=== PATIENT | female | born 1990 | race Two or more races ===

== ENCOUNTER 2024-07-19 06:23 | Inpatient (IN) | payer MEDICAID, SELFPAY ==
[2024-07-19] VITALS (59 sets, daily range): BP systolic 116–171; BP diastolic 64–95; PULSE 55–82; RESP 16–99; TEMP 36.7–37; O2SAT 95–100; BMI 39.6
[2024-07-19] MEDS: RINGERS LACTATED 1000 ML 1,000 ML 100 ML IV ×2 (07:00→08:05)
--- NOTE | 2024-07-19 07:33 | PD.LDHP ---
Documentation for date of: 07/19/24 OB Labor/Induct. HPI History of Present Illness Comments: H and P dictated on STAT line #9 in [place] [id number] Meds Home Medications and Allergies Allergies Allergy/AdvReac Type Severity Reaction Status Date / Time No Known Allergies Allergy Verified 07/18/22 10:55 OB Exam Physical Exam Vital signs: Temp Pulse Resp BP 98.4 F 67 17 132/64 H 07/19/24 06:40 07/19/24 07:29 07/19/24 06:40 07/19/24 07:29
[2024-07-19 08:35] LABS: Basophils # (Auto) 0.1 Thou/mm3 (0.0-0.2); Basophils % (Auto) 1 % (0-2.5); Eosinophils # (Auto) 0.2 Thou/mm3 (0.0-0.5); Eosinophils % (Auto) 2 % (0-10); Hematocrit 33.8 % (36.0-46.0); Hemoglobin 11.7 g/dL (12.0-16.0); Immature Granulocytes % (Auto) 1 % (0-0); Immature Granulocytes Auto 0.09 Thou/mm3 (0.00-0.00); Lymphocytes % (Auto) 37 % (10-50); Mean Corpuscular HGB Conc 34.6 g/dl (31.0-37.0); Mean Corpuscular Hemoglobin 30.1 pg (25.0-35.0); Mean Corpuscular Volume 87 fL (80-100); Monocytes # (Auto) 0.6 Thou/mm3 (0.0-0.8); Monocytes % (Auto) 8 % (0-12); Neutrophils # (Auto) 4.2 Thou/mm3 (1.8-7.7); Neutrophils % (Auto) 52 % (37-80); Nucleated Red Blood Cell % 0 /100 WBC (0); Platelet Count 203 Thou/mm3 (140-440); Red Blood Count 3.89 Miln/mm3 (4.00-5.20)
[2024-07-19 08:36] LABS: Collection Type, Urine Clean Catch
[2024-07-19 08:43] LABS: Amphetamine/Metham Scrn,Ur OB Negative (Negative); Benzoylecgonine Screen, Ur OB Negative (Negative); Opiate Screen,Urine OB Negative (Negative); THC Screen,Urine OB Negative (Negative)
[2024-07-19 09:00] LABS: Alanine Aminotransferase 12 U/L (10-49); Albumin, Serum 3.4 gm/dL (3.5-5.0); Albumin/Globulin Ratio 1.5 (1.2-2.2); Alkaline Phosphatase 156 U/L (46-116); Anion Gap 9 (7-16); Aspartate Amino Transferase 18 U/L (0-34); BUN/Creatinine Ratio 18 Ratio (12-20); Bilirubin,Total 0.4 mg/dL (0.3-1.2); Blood Urea Nitrogen 9 mg/dL (9-23); Calcium 8.7 mg/dL (8.3-10.6); Calcium (Corrected) 9.2 mg/dL (8.5-10.1); Carbon Dioxide 21.2 mMol/L (20.0-31.0); Chloride 109 mMol/L (98-107); Creatinine (Component) 0.5 mg/dL (0.6-1.3); Estimated Creatinine Clearance 172.1 mL/min (>60); Globulin 2.2 gm/dL (2.3-3.5); Glucose 83 mg/dL (74-106); Osmolality,Calculated 275 (275-295); Potassium 3.7 mMol/L (3.4-5.1); Sodium 139 mMol/L (136-145); Total Protein 5.6 gm/dL (5.7-8.2); Uric Acid 3.9 mg/dL (3.1-7.8); eGFR > 60 See Note
[2024-07-19 09:09] LABS: Fibrinogen 383 mg/dL (175-375); Partial Thromboplastin Time 29.9 Seconds (22.0-36.0); Prothrombin Time 10.5 Seconds (9.0-12.2)
[2024-07-19 09:19] LABS: Syphilis Nonreactive (Nonreactive)
[2024-07-19 09:19] LABS: Bilirubin,Urine Negative (Negative); Blood,Urine 2+ (Negative); Clarity,Urine Clear (Clear/Hazy); Color,Urine Lt-Yellow (Lt Yel-Yel); Glucose, Urine Negative (Negative); Ketones,Urine Negative (Negative); Leukocyte Esterase,Urine Positive (Negative); Nitrite,Urine Negative (Negative); Protein,Urine Negative (Neg - Trace); RBC,Urine 1 /hpf (0-3); Specific Gravity,Urine 1.026 (1.001-1.035); Squamous Epithelial Cell,Urine 12 /hpf (0-5); Urobilinogen,Urine Negative mg/dL (0.0-1.0); WBC,Urine 4 /hpf (0-5)
--- NOTE | 2024-07-19 11:41 | XR_ITS ---
Examination: Abdomen AP single view Technique: AP portable supine abdomen, single view Exam date and time: July 19, 2024, 1046 hours INDICATIONS: No instrument count FINDINGS: Images do not include the entire left abdomen or upper abdomen No opaque foreign body is seen IMPRESSION: No opaque foreign body is seen
[2024-07-19] MEDS: Morphine Sulfate PF 1 MG/ML PCA VIAL 30 ML 30 MG IV (12:52)
--- NOTE | 2024-07-19 12:52 | OBDSUM_ITS ---
Data (Stock) Data : 4 Para: 3 Term: 3 : 0 : 0 Delivery Data (Stock) Labor Data ROM Date: 07/19/24 ROM Time: 09:49 Rupture Type: AROM Amniotic Fluid: Bloody Delivery Data EDC: 07/22/24 EDC calculated by:: LMP/early US confirmation Delivery Date: 07/19/24 Delivery Time: 11:31 Gestational age (weeks): 39 Gestational age (days): 4 Placenta Delivery Date: 07/19/24 Placenta Delivery Time: 11:31 Delivered by: Horacio Rdz Delivery nurse: Vianey Damico Other staff at delivery: Nursery Nurse Other staff at delivery: Tuyet Arguelles Delivery Method Delivery: Delivery Type: Primary Presentation: Vertex Position: OP Anesthesia Type Primary Anesthesia: Spinal Placenta Placenta Delivery: Manual Placenta Cultures Obtained: No Placenta Sent for Examination: Yes Cord Sample: Cord Blood Obtained, Cord Gases Arterial and Cord Gases Venous EBL Estimated blood loss (ml): 700 Umbilical Cord Nuchal Cord: x1 Additional Procedures None Complications Complications: None [place] Data (Stock) Data Gender: Male Weight Grams: 4251 1 Minute Total: 8 5 Minute Total: 8 10 Minute Total: 9
--- NOTE | 2024-07-19 12:54 | PD.LDDS ---
DS: Providers Provider Date of admission: 07/19/24 07:06 Primary care physician: Physician No Primary/Family Admitting Provider: Horacio Rdz MD Attending Provider on Admission: Horacio Rdz MD Consults: 07/19/24 12:40 Referral Routine Comment: Attending Provider on DC: Horacio Rdz MD Discharging Provider: Horacio Rdz MD DS: Diagnosis Problem List Completed Was Problem List Reviewed/Reconciled?: Yes Summary/Hosp Course Time Spent with Patient Time attestation: Total time spent providing and/or coordinating discharge services: Exam Vital Signs Temp Pulse Resp BP Pulse Ox O2 Del Method O2 Flow Rate 98.0 F 68 20 134/81 H 99 Oxy Mask 10 07/19/24 12:30 07/19/24 12:30 07/19/24 12:30 07/19/24 12:30 07/19/24 12:30 07/19/24 12:30 07/19/24 12:30 Discharge Plan Plan Patient Disposition: HOME (Self Care) Patient condition on transfer: Stable Prescriptions/Referrals Prescriptions/Med Rec: New hydrocodone-acetaminophen 5-325 mg tablet 1 tab PO Q6H MDD 4 PRN (Reason: pain) Qty: 20 0RF ibuprofen 600 mg tablet 600 mg PO Q6H PRN (Reason: pain) Qty: 30 0RF Continued Classic 28 mg iron- 800 mcg tablet 1 tab PO QDAY Patient Comments: take 1 tablet by mouth once daily Discontinued fluticasone propion-salmeterol [Advair Diskus] 250-50 mcg/dose blister with device 1 each INH Q12H MDD 2 Qty: 60 0RF albuterol sulfate 90 mcg/actuation HFA aerosol inhaler 2 puff INH Q4H PRN (Reason: shortness of breath) Qty: 8.5 0RF prednisone 10 mg tablet 30 mg PO BID Qty: 18 0RF Rx Instructions: administer with food or milk ibuprofen 600 mg tablet 600 mg PO Q6H Qty: 30 0RF aspirin 81 mg tablet,delayed release (DR/EC) 81 mg PO QDAY Patient Comments: take 1 tablet by mouth once daily Referrals: No Primary/Family,Physician [Primary Care Provider] - Patient/Caregiver Discharge Instructions Discharge Activity: activity as tolerated Other Discharge Activity Instructions:: Follow up office SaturdayJuly 29. ([place] a paige tru [place] [address] [place]) Education Materials: After a , Nutrition While , C Section Dc Print Language: Estonian Stand Alone Forms: [place] Award Info., Patient Portal Info Letter Discharge Order Discharge Orders: Discharge (Routine); Ordered 07/21/24 Ordered By: Horacio Rdz Planned Discharge Date 07/21/24
[2024-07-19] MEDS: ceFAZolin/D5W 2 GM IV 2 GM/100 ML BAG IV ×2 (13:22→21:39)
[2024-07-19] MEDS: OXYTOCIN in NS 20 units 20 UNIT/1,000 ML BAG 125 UNIT IV ×2 (13:23→21:43)
[2024-07-19] MEDS: KETOROLAC INJ 30 MG/ML VIAL IVP (16:14)
[2024-07-19 17:12] LABS: Basophils % (Auto) 0 % (0-2.5); Eosinophils % (Auto) 0 % (0-10); Hematocrit 30.8 % (36.0-46.0); Immature Granulocytes % (Auto) 1 % (0-0); Lymphocytes # (Auto) 1.2 Thou/mm3 (1.0-4.8); Lymphocytes % (Auto) 8 % (10-50); Mean Corpuscular HGB Conc 35.7 g/dl (31.0-37.0); Mean Corpuscular Hemoglobin 30.6 pg (25.0-35.0); Mean Corpuscular Volume 86 fL (80-100); Monocytes # (Auto) 0.5 Thou/mm3 (0.0-0.8); Monocytes % (Auto) 3 % (0-12); Neutrophils # (Auto) 13.9 Thou/mm3 (1.8-7.7); Neutrophils % (Auto) 88 % (37-80); Nucleated Red Blood Cell % 0 /100 WBC (0); Platelet Count 194 Thou/mm3 (140-440); RDW Standard Deviation 41.7 fL (36.4-46.3); Red Blood Count 3.59 Miln/mm3 (4.00-5.20); White Blood Count 15.8 Thou/mm3 (3.6-11.0)
--- NOTE | 2024-07-19 17:53 | ESOP_ITS ---
RE: BRIA LOPEZ : 1990 DATE OF OPERATION: 07/19/2024 PREOPERATIVE DIAGNOSES: 1. Intrauterine at 39 weeks and 4 days. 2. Active labor. 3. Prolonged deceleration. 4. Umbilical cord prolapse. POSTOPERATIVE DIAGNOSES: 1. Intrauterine at 39 weeks and 4 days. 2. Active labor. 3. Prolonged deceleration. 4. Umbilical cord prolapse. PROCEDURE PERFORMED: Emergency delivery via midline vertical skin incision and low transverse uterine incision . SURGEON: Horacio Rdz DO FIGURINE MAKER: SPEEDY Choudhury ANESTHESIA: General. ANESTHESIOLOGIST: Mehran Loving CRNA ESTIMATED BLOOD LOSS: 700 mL COMPLICATIONS: None. COUNTS: Correct. PATHOLOGY: Placenta. FINDINGS: A live male Apgars 8, 8, and 9, weight 4251 g, cord pH 7.09 venous and no arterial cord blood gas was able to be obtained by the RN. Occiput posterior nuchal cord, uterus, ovaries, and fallopian tubes grossly within normal limits. Minimal bloody amniotic fluid. DESCRIPTION OF PROCEDURE: The patient experienced a prolonged deceleration at 8 cm dilated with exam showing a prolapsed umbilical cord. Dr. Rdz held the head to avoid compression of the cord as the team was called for an emergency delivery. Dr. Le switched places with Dr. Rdz and held the head as we proceeded to the suite. The heart tones returned to the normal range when she was not krzysztof, but during contractions decelerations were noted on external monitoring, which was continued until abdominal prep. The head was also held so as not to compress the umbilical cord up until the incision was made. The patient verbally consented to the procedure including the risks, complications, alternatives, and benefits of the proposed procedure by Patti and Vianey as she was taken to the operating room as they translated for me. In the Suite she was prepped and draped in the usual sterile fashion/timeout was performed. She underwent induction of general anesthesia and a midline vertical incision was made below the umbilicus to the symphysis to about 2 cm above the symphysis pubis. The scalpel was used to excise through the subcutaneous tissue and the fascia in the midline and peritoneum was entered between 2 Brock clamps and the bladder blade was then inserted. The vesicouterine peritoneum was incised transversely and the bladder flap created digitally. The bladder blade was reinserted. The lower uterine segment incised in transverse fascia with a scalpel, the infant's head was delivered atraumatically. The mouth and nose suctioned with bulb suction. The nuchal cord was reduced. Shoulder and body delivered atraumatically. The cords clamped and cut and sent off to waiting pediatric staff. Cord blood and gases were sent. Placenta was then removed manually. The uterus was exteriorized and cleared of all clots and debris. The uterus incision was closed with #1-0 chromic suture in a running locking fashion. The second layer of same suture was used to imbricate the first layer. Hemostasis was achieved on the lower uterine segment. The vesicouterine peritoneum was closed with 2-0 chromic catgut suture in a running fashion. The fundus was firm. The uterus was returned to the abdomen. The gutter was cleared off all clots and debris and the peritoneum closed with a 0 chromic catgut suture in a running fashion. The fascia was closed with #0 Vicryl beginning at each angle and ending in center in running fashion. The abdominal x-ray was performed and no opaque foreign body was seen confirmed by the radiologist. The subcutaneous tissue was irrigated with normal saline solution and found to be hemostatic and closed with 2-0 chromic gut suture in a running fashion. The skin was closed with 4-0 Monocryl and shilpi. Dermabond Prineo dressing was applied. Sterile pressure dressing was applied. She was reversed from general anesthesia in supine position and transferred to Recovery in stable condition. She tolerated the procedure well. Counts were correct. I discussed with the patient's nature of her condition, and intraoperative findings, expectation for recovery. All questions were answered. DT: 13:35:42 TT: 17:52:00 Ref: [id number] - TID: [id number] MTDSarah
[2024-07-20 02:51] VITALS: RESP 26
--- NOTE | 2024-07-20 02:58 | PC.NURSE ---
discontinued MANAGEMENT SPECIALIST morphine with Margareth Stevens RN. total volume wasted together 23ml.
[2024-07-20 05:14] VITALS: BP 128/71; PULSE 75; RESP 24; TEMP 36.8; O2SAT 96
[2024-07-20] MEDS: ceFAZolin/D5W 2 GM IV 2 GM/100 ML BAG IV ×2 (05:29→13:14)
--- NOTE | 2024-07-20 07:28 | ESHP_ITS ---
RE: BRIA LOPEZ : 1990 DATE OF ADMISSION: 07/19/2024 HISTORY OF PRESENT ILLNESS: This is a 33-year-old for para 3-0-0-3 with a due date of 07/22 with intrauterine at 39 weeks and 4 days who presents to labor and delivery complaining of contractions and is found to be 6 cm dilated. She denies any leaking or bleeding. She reports normal movement. Her care was complicated by gestational diabetes, diet control. Her most recent ultrasound on 07/08 showed overall growth at the 61st percentile current and a weight of 3358 g. Current estimated weight is 8.25 pounds. ALLERGIES: NO KNOWN DRUG ALLERGIES. MEDICATIONS: 1. multivitamin one p.o. daily. 2. Macrobid 100 mg one p.o. b.i.d. 3. Aspirin 81 mg one p.o. daily. PAST MEDICAL HISTORY: Gestational diabetes mellitus, class A1, urinary tract infection, gestational thrombocytopenia, advanced maternal age, history of delivery of a macrosomal , 10 pounds. SOCIAL HISTORY: She denies any alcohol, drug use or smoking. She is . OBSTETRIC HISTORY: 1. In 2008, 40-week normal vaginal delivery, 8 pound male. No complications. 2. In 2011, 40-week normal vaginal delivery, 9 pound male. No complications. 3. In 2018, 40 week normal vaginal delivery, 10-pound female, no complications, complicated by gestational diabetes mellitus class A1. PAST SURGICAL HISTORY: Denies. FAMILY HISTORY: Prior child with autism. The patient is not a carrier for Fragile X. REVIEW OF SYSTEMS: She denies any chest pain, palpitations, cough, fever, shortness of breath, or lower extremity pain. She denies any headache, change in vision or right upper quadrant pain. PHYSICAL EXAMINATION: VITAL SIGNS: Initial blood pressure is 164/92, repeat was 141/87, heart rate 88, respirations 18, temperature 98.2. HEENT: Oropharynx and sclerae are clear. LUNGS: Clear to auscultation bilaterally. HEART: Regular rate and rhythm. ABDOMEN: Gravid consistent with 8.25 pounds. EXTREMITIES: Nontender. SKIN: No gross rashes or lesions. NEUROLOGIC: No focal deficit. ASSESSMENT AND PLAN: Intrauterine at 39 weeks and 4 days, gestational diabetes mellitus class A1, history of delivery of a macrosomal x2, active labor, anticipate spontaneous vaginal delivery, initial elevated blood pressures, PIH labs ordered. Informed consent was obtained. The patient was made aware of the risks, complications, alternatives, and benefits of operative vaginal delivery and delivery. He agrees with these modes of delivery if indicated. DT: 07:32:38 TT: 08:13:00 Ref: [id number] - TID: [id number] [facility]
[2024-07-20 07:40] VITALS: BP 126/71; PULSE 98; RESP 18; TEMP 36.9; O2SAT 98
[2024-07-20] MEDS: KETOROLAC INJ 30 MG/ML VIAL IVP (07:51)
[2024-07-20] MEDS: ENOXAPARIN SOD INJ 40 MG/0.4 ML SYRINGE SC (08:17)
--- NOTE | 2024-07-20 09:12 | PC.SS ---
ASW met with patient to address social work supervisor referral for late to care. ASW met with patient, introduced self, role and reason for contact. Patient appeared alert/oriented. Patient is Grenadian speaking. Patient able to confirm demographic information. Patient reports in the home lives her, her spouse Nasir and their children. Patient reports this is her fourth child. Ages of children at home are reported to be 15,12 and 7. Patient informs she is aligned with [employer] and [employer], however not currently employed. Patient denies having any current or history with CWS, DV, MH and AOD. Regarding the reason for referral, the patient reports she established care at the [facility] with Dr. Rdz. Patient reports she connected to care at about two months of her . Patient was provided with education about care and PPD. Patient denies any current symptoms. Patient was explained how services could be accessed if necessary and was provided with community resources including mental health resources. Patient reports she has adequate support at home from her spouse to help care for infant and children. Patient reports having necessary items needed to help her for her child. Patient reports she will be combo feeding her infant. Patient informs she will establish pediatric care in [place] with Dr. Rashid for her child. During this encounter, is observed to be bonding appropriately with mother, no concerns noted. Per social work supervisor, no concerns noted. Patient toxicology report is negative and patient has adequate support at home. Resources provided. Bed side nurse was updated.
[2024-07-20 12:20] VITALS: BP 135/83; PULSE 79; RESP 19; TEMP 36.9; O2SAT 98
[2024-07-20] MEDS: HYDROcodone/APAP 5/325 TABLET 2 TAB PO (12:27)
[2024-07-20] MEDS: Milk Of Magnesia Susp 30 ML UDC PO (12:27)
[2024-07-20] MEDS: SIMETHICONE 80 MG CHEW PO ×2 (12:27→18:25)
--- NOTE | 2024-07-20 16:10 | ESPR_ITS ---
RE: BRIA LOPEZ : 1990 DATE OF SERVICE: 07/20/2024 SUBJECTIVE: Postop day #1. The patient denies any problem or complaints. She is voiding. She is ambulating. She is tolerating regular diet. She is passing flatus. She denies any excessive vaginal bleeding. She denies any dizziness or lightheadedness. She denies any chest pain, palpitations, shortness of breath or lower extremity pain. OBJECTIVE: Vital Signs: Blood pressure is 135/83, heart rate 79, respirations 19, temperature is 98.4, pulse ox is 98% on room air. Lungs: Clear to auscultation bilaterally. Heart: Regular rate and rhythm. Abdomen: Dressing dry and intact. Fundus is firm. Extremities: Nontender. LABORATORY DATA: Hemoglobin predelivery us 11.7, post delivery is 11.0. ASSESSMENT: Postop day #1, status post emergency delivery. PLAN: Discontinue IV, remove dressing, encourage ambulation, support, discontinue antibiotics. Continue Lovenox to prevent VTE. Possible discharge home tomorrow. DT: 14:01:17 TT: 16:08:00 Ref: [id number] - TID: [id number]
[2024-07-20] MEDS: HYDROcodone/APAP 5/325 TABLET 1 TAB PO (18:15)
[2024-07-20 19:53] VITALS: BP 130/79; PULSE 85; RESP 16; TEMP 36.8; O2SAT 97
[2024-07-21 00:13] VITALS: BP 134/80; PULSE 84; RESP 24; TEMP 36.9; O2SAT 95
[2024-07-21] MEDS: HYDROcodone/APAP 5/325 TABLET 1 TAB PO ×2 (01:32→08:59)
[2024-07-21 04:16] VITALS: BP 133/81; PULSE 77; RESP 20; TEMP 36.7; O2SAT 96
--- NOTE | 2024-07-21 06:46 | ESPR_ITS ---
RE: BRIA LOPEZ : 1990 DATE OF SERVICE: 07/21/2024 S: Postop day #2, the patient denies any problem or complaints. She is voiding. She is ambulating. She tolerated regular diet. She is passing flatus. She denies any excessive vaginal bleeding. She denies any dizziness or lightheadedness. She denies any chest pain, palpitations, shortness of breath or lower extremity pain. O: Vital Signs: Blood pressure is 133/81, heart rate 77, respirations 20, temperature 98.1, and pulse ox is 96% on room air. Lungs: Clear to auscultation bilaterally. Heart: Regular rate and rhythm. Abdomen: Incision clear and intact. Fundus is firm. Extremities: Nontender. A: Postoperative day #2, status post delivery. P: Discharge home. Discharge instructions given. Followup in the office in 10 days. I discussed with the patient discharge instructions. All questions answered. She is aware that there was no tubal ligation or tubal sterilization procedure performed at the time of her delivery. DT: 06:38:14 TT: 06:44:00 Ref: [id number] - TID: [id number]
[2024-07-21 08:08] VITALS: TEMP 36.9
[2024-07-21] MEDS: IBUPROFEN TAB 400 MG TABLET 800 MG PO (08:08)
[2024-07-21] MEDS: SIMETHICONE 80 MG CHEW PO (08:09)
[2024-07-21] MEDS: Milk Of Magnesia Susp 30 ML UDC PO (08:09)
[2024-07-21] MEDS: ENOXAPARIN SOD INJ 40 MG/0.4 ML SYRINGE SC (08:09)
[2024-07-21 08:30] VITALS: RESP 20; TEMP 36.9
[2024-07-21 11:35] VITALS: BP 129/64; PULSE 73; RESP 18; TEMP 36.8; O2SAT 97
== END 2024-07-21 14:23 | disposition home or self-care (01) | DRG 540 ==
LOC: S4SX 11:44 → S4NX 11:49
PROVIDERS: Admitting Provider Specialist; Visit Provider Specialist
PROC: (CPT 59514; principal; 2024-07-19 11:15)
DX: O24.420 Gestational diabetes mellitus in childbirth, diet controlled (principal); Z37.0 Single live birth; Z3A.39 39 weeks gestation of pregnancy; O69.0XX0 Labor and delivery complicated by prolapse of cord, not applicable or unspecified; O69.81X0 Labor and delivery complicated by cord around neck, without compression, not applicable or unspecified; O76 Abnormality in fetal heart rate and rhythm complicating labor and delivery
CPT/HCPCS: 36415; 59409; 74018; 80053; 80307; 81001; 84550; 85025; 85384; 85610; 85730; 86780; 86850; 86900; 86901; 94762; A4649; J0330; J0689; J1100; J1650; J1885; J2250; J2270; J2371; J2405; J2590; J2704; J2795; J3010; J3490; J7120; A9270